=== PATIENT | female | born 1960 | race Caucasian/White ===

== ENCOUNTER → 2016-08-05 | Outpatient (CLI) | payer OTHER | END | disposition home or self-care (01) | LOC: CDC 10:50 | DX: I45.10 Unspecified right bundle-branch block (principal); K43.9 Ventral hernia without obstruction or gangrene | CPT/HCPCS: 93000 ==

== ENCOUNTER 2016-08-15 09:27 | Day surgery (SDC) | payer OTHER ==
[~2016-08-15] VITALS: Ht 157.5 cm; Wt 97.5 kg
[~2016-08-15 09:27] MED LIST: FLONASE SENSIM9.9 ML BOTH NARES; HYZAAR 100-11 TABLET PO; LOPID600 MG PO; METFORMIN HCL500 M4 PO; ZYRTEC10 M2 PO
[2016-08-15 09:50] VITALS: BP 136/74
[2016-08-15 10:10] VITALS: BP 136/74
[2016-08-15 10:18] LABS: POINT-OF-CARE METER ID UU14174212
[2016-08-15] MEDS ORDERED: PERCOCET 5/31 TABLET PO (12:09)
[2016-08-15 12:37] LABS: POINT-OF-CARE METER ID UU13113675
[2016-08-15] MEDS ORDERED: NORCO 5/3251 TABLET PO (12:55)
[2016-08-15 13:40] VITALS: BP 143/80
[2016-08-15 14:40] VITALS: BP 128/66
[2016-08-15 15:16] VITALS: BP 137/73
== END 2016-08-15 15:23 | disposition home or self-care (01) ==
LOC: SDC
PROVIDERS: Surgery
PROC: 0WUF4JZ Supplement Abdominal Wall with Synthetic Substitute, Percutaneous Endoscopic Approach (ICD-10-PCS; principal; 2016-08-15)
DX: K42.0 Umbilical hernia with obstruction, without gangrene (principal); I10 Essential (primary) hypertension; E11.9 Type 2 diabetes mellitus without complications; Z79.84 Long term (current) use of oral hypoglycemic drugs; Z68.37 Body mass index [BMI] 37.0-37.9, adult; Z82.49 Family history of ischemic heart disease and other diseases of the circulatory system; Z84.1 Family history of disorders of kidney and ureter; Z83.3 Family history of diabetes mellitus; Z88.0 Allergy status to penicillin
CPT/HCPCS: 82948; C1781; J0330; J0690; J1170; J2405; J3010